=== PATIENT | female | born 1945 | race Caucasian/White ===

== ENCOUNTER → 2021-04-18 | Outpatient (CLI) | payer MEDICARE, BC ==
[~2021-04-18] MED LIST: BACLOFEN5 MG PO; COZAAR100 MG PO; INDERAL TAB 4040 MG PO; LEVOTHYROXINE25 MC1 PO; PEPCID20 MG PO; PRAVASTATIN SOD40 MG PO; PROTONIX40 MG PO; TEGRETOL100 MG/5 M PO; VITAMIN D31 ML MC
[2021-04-19 09:13] LABS: THYROXINE (T4) 9.4 ug/dL (4.5-12.0)
== END ==
LOC: US 09:30
PROVIDERS: Internal Medicine Gastroenterology
DX: R11.0 Nausea (principal); R17 Unspecified jaundice; R19.7 Diarrhea, unspecified
CPT/HCPCS: 36415; 76705; 80076; 82150; 83690; 84436; 84443; 84480; U0003

== ENCOUNTER → 2021-04-20 | Day surgery (SDC) | payer MEDICARE, BC | END | disposition home or self-care (01) | LOC: OR 06:28 | DX: K29.50 Unspecified chronic gastritis without bleeding (principal); K76.6 Portal hypertension; K31.89 Other diseases of stomach and duodenum; K44.9 Diaphragmatic hernia without obstruction or gangrene; K29.70 Gastritis, unspecified, without bleeding; I10 Essential (primary) hypertension; E78.5 Hyperlipidemia, unspecified; K21.9 Gastro-esophageal reflux disease without esophagitis; E03.9 Hypothyroidism, unspecified; E78.00 Pure hypercholesterolemia, unspecified; Z88.1 Allergy status to other antibiotic agents; Z79.1 Long term (current) use of non-steroidal anti-inflammatories (NSAID); Z79.899 Other long term (current) drug therapy | CPT/HCPCS: J2405; J2704; J7040 ==